=== PATIENT | female | born 1965 | race Caucasian/White ===

== ENCOUNTER 2022-02-16 08:15 | Emergency (ER) | payer BC, MEDICAID ==
[2022-02-16] MEDS: Ketorolac 30 MG/ML SDV IM ONE (08:57)
== END 2022-02-16 09:19 | disposition home or self-care (01) ==
LOC: CC.ED 08:15
DX: G89.29 Other chronic pain (principal); M54.50 Low back pain, unspecified; Z88.5 Allergy status to narcotic agent; Z88.1 Allergy status to other antibiotic agents; Z88.0 Allergy status to penicillin
CPT/HCPCS: 96372; 99283; J1885

== ENCOUNTER 2022-05-18 11:19 | Emergency (ER) | payer MEDICAID | END 2022-05-18 12:50 | disposition home or self-care (01) | LOC: CC.ED 11:19 | DX: S93.601A Unspecified sprain of right foot, initial encounter (principal); F17.210 Nicotine dependence, cigarettes, uncomplicated; Z88.5 Allergy status to narcotic agent; Z88.1 Allergy status to other antibiotic agents; Z88.0 Allergy status to penicillin; W10.9XXA Fall (on) (from) unspecified stairs and steps, initial encounter | CPT/HCPCS: 73630-RT; 99283 ==

== ENCOUNTER 2022-09-02 18:18 | Emergency (ER) | payer MEDICAID | END 2022-09-02 19:47 | disposition home or self-care (01) | LOC: CC.ED 18:18 | DX: U07.1 COVID-19 (principal); Z88.5 Allergy status to narcotic agent; Z88.1 Allergy status to other antibiotic agents; Z88.0 Allergy status to penicillin; Z79.899 Other long term (current) drug therapy; Z72.0 Tobacco use | CPT/HCPCS: 87804; 87807; 99283; 99284; U0002 ==

== ENCOUNTER 2025-03-09 09:05 | Emergency (ER) | payer OTHER ==
[2025-03-09] MEDS: Ketorolac 30 MG/ML SDV IM ONE (09:19)
[2025-03-09] MEDS: Orphenadrine 60 MG/2 ML Inj IM ONE (09:19)
== END 2025-03-09 09:55 | disposition home or self-care (01) ==
LOC: CC.ED 09:05
DX: M54.50 Low back pain, unspecified (principal); F17.210 Nicotine dependence, cigarettes, uncomplicated; Z88.5 Allergy status to narcotic agent; Z88.1 Allergy status to other antibiotic agents; Z88.2 Allergy status to sulfonamides; Z79.899 Other long term (current) drug therapy; Z79.51 Long term (current) use of inhaled steroids
CPT/HCPCS: 72100; 96372; 99283; J1885; J2360